=== PATIENT | male | born 1940 | race Caucasian/White ===

== ENCOUNTER 2017-07-06 09:56 | Day surgery (SDC) | payer MEDICARE, OTHER ==
[~2017-07-06] VITALS: Ht 180.3 cm; Wt 75.1 kg
[2017-07-06] MEDS ORDERED: PRINIVIL20 MG PO (11:00)
[2017-07-06] MEDS ORDERED: TOPROL XL 25MG25 MG PO (11:00)
[2017-07-06] MEDS ORDERED: PROAIR HFA0.09 MG/AC IH (11:01)
[2017-07-06] MEDS ORDERED: SPIRIVA RE2.5 MCG/Ac IH (11:02)
[2017-07-06] MEDS ORDERED: RT ADVAIR 228 DISKUS IH (11:02)
[2017-07-06] MEDS ORDERED: HYGROTON 2525 MG/TAB PO (11:03)
[2017-07-06] MEDS ORDERED: ZOCOR 20MG20 MG PO (11:03)
[2017-07-06] MEDS ORDERED: MIRAPEX0.5 MG PO (11:05)
[2017-07-06] MEDS ORDERED: DEPAKOTE 250MG250 MG PO (11:05)
[2017-07-06] MEDS ORDERED: ARICEPT10 MG PO (11:06)
[2017-07-06] MEDS ORDERED: CLARITIN 1010 MG/TAB PO (11:06)
[2017-07-06] MEDS ORDERED: ASPIRIN E.C. 8181 MG PO (11:06)
[2017-07-06] MEDS ORDERED: REMERON30 MG PO (11:07)
[2017-07-06] MEDS ORDERED: D-2000 90 MG-201 TAB PO (11:07)
[2017-07-06] MEDS ORDERED: MASON NATURAL1000 MG PO (11:08)
[2017-07-06] MEDS ORDERED: SINGULAIR 110 MG/TAB PO (11:08)
[2017-07-06] MEDS ORDERED: NAMENDA XR 28MG PO (11:09)
[2017-07-06] MEDS ORDERED: AMBIEN CR 12.12.5 MG PO (11:09)
[2017-07-06] MEDS ORDERED: PRILOSEC 20MG20 MG PO (11:09)
[2017-07-06] MEDS ORDERED: ZYLOPRIM 100MG100 MG PO (11:10)
[2017-07-06] MEDS ORDERED: ACETAMINOPHEN-COD #3 PO (11:10)
[2017-07-06] MEDS ORDERED: NASONEX SPRAY17 GM NS (11:12)
[2017-07-06] MEDS ORDERED: CENTRUM SILVER1 CTB PO (11:12)
[2017-07-06] MEDS ORDERED: MIRALAX PA17 GM/Dose PO (11:12)
[2017-07-06] MEDS ORDERED: TYLENOL 325MG325 MG PO (11:13)
[2017-07-06 11:15] VITALS: BP 147/80; PULSE 64; TEMP 97.9
[2017-07-06 11:40] VITALS: BP 138/80; PULSE 53; TEMP 98
[2017-07-06 11:55] VITALS: BP 140/80; PULSE 54
[2017-07-06 12:10] VITALS: BP 149/85; PULSE 53
[2017-07-06 15:25] VITALS: BP 105/73; PULSE 50
== END 2017-07-06 12:45 | disposition home or self-care (01) ==
LOC: SDCO 09:56
DX: K57.30 Diverticulosis of large intestine without perforation or abscess without bleeding (principal); N18.9 Chronic kidney disease, unspecified; J43.9 Emphysema, unspecified; I10 Essential (primary) hypertension; G47.33 Obstructive sleep apnea (adult) (pediatric); E78.5 Hyperlipidemia, unspecified; G30.9 Alzheimer's disease, unspecified; F02.80 Dementia in other diseases classified elsewhere, unspecified severity, without behavioral disturbance, psychotic disturbance, mood disturbance, and anxiety; Z87.891 Personal history of nicotine dependence
CPT/HCPCS: J2704; J7120

== ENCOUNTER → 2019-04-22 | Outpatient (REF) ==
[~2019-04-22] MED LIST: ACETAMINOPHEN-COD #3 PO; AMBIEN CR 12.12.5 MG PO; ARICEPT10 MG PO; ASPIRIN 32325 MG/TA1 PO; ASPIRIN E.C. 8181 MG PO; ATARAX 25MG25 MG/TAB PO; CENTRUM SILVER1 CTB PO; CLARITIN 1010 MG/TAB PO; COLACE 100100 MG/CAP PO; DEPAKOTE 250MG250 MG PO; DUO-KAPS1 CAP PO; EPA FISH OIL1000 MG PO; FERRO-TIME325 MG PO; HYGROTON 2525 MG/TAB PO; LEADER CLE17 GM/Dose PO; LIPITOR 40MG TA40 MG PO; LOPRESSOR 225 MG/TAB PO; MEGACE ORAL40 MG/ML PO; MIRALAX PA17 GM/Dose PO; MIRAPEX0.5 MG PO; NAMENDA XR 28MG PO; NASONEX SPRAY17 GM NS; NORCO 325 MG-51 TAB PO; NORVASC2.5 MG PO; OSCAL 500 TAB500 MG PO; PRILOSEC 20MG20 MG PO; PRINIVIL20 MG PO; PROAIR HFA0.09 MG/AC IH; REMERON30 MG PO; RT ADVAIR 228 DISKUS IH; RT SPIRIVA18 MCG IH; SINGULAIR 110 MG/TAB PO; SPIRIVA RE2.5 MCG/Ac IH; TOPROL XL 25MG25 MG PO; TYLENOL 325MG325 MG PO; VITAMIN C500 MG PO; VITAMIN D 1001000 IU PO; WELLBUTRIN 75MG75 MG PO; ZANTAC 150MG T150 MG PO; ZOCOR 20MG20 MG PO; ZYLOPRIM 100MG100 MG PO
[2019-04-22 10:05] LABS: HEMOGLOBIN 11.6 g/dl (13.5-18.0); MEAN CELL VOLUME 92 fl (80.0-100.0); MEAN CORPUSCULAR HEMOGLOBIN 30 pg (27.0-31.0); MEAN CORPUSCULAR HGB CONC 33 g/dl (33.0-37.0); MEAN PLATELET VOLUME 11.3 fl (7.4-10.4); PLATELET COUNT 320 K/mm3 (130-400); RED BLOOD COUNT 3.84 M/mm3 (4.20-5.60); REDCELL DISTRIBUTION WIDTH-CV 16.5 % (11.5-14.5)
[2019-04-22 10:06] LABS: HEMATOCRIT 35.4 % (42.0-52.0)
[2019-04-22 10:11] LABS: CALCIUM 9.5 mg/dL (8.4-10.2); CREATININE, serum 1.72 (0.66-1.25); POTASSIUM 4.6 mmol/L (3.4-5.0)
[2019-04-22 10:48] LABS: BAND 6 % (0-10); EOSINOPHIL 5 % (0-4); LYMPHOCYTE 26 % (20.0-51.0); MYELOCYTE 2 % (0-0); NEUTROPHILS 52 % (42.0-75.2); PLATELET ESTIMATE NORMAL (NORMAL)
== END ==
LOC: ZLAB.STJ 09:56
PROVIDERS: Emergency Medicine
DX: Z01.89 Encounter for other specified special examinations (principal)

== ENCOUNTER → 2019-05-16 | Outpatient (REF) ==
[2019-05-16 09:59] LABS: COLLECTION METHOD CLEAN CATCH
[2019-05-16 11:07] LABS: MUCOUS Present /lpf; PH 5 (5-8); SQUAMOUS EPITHELIAL None Seen /hpf; URINE APPEARANCE Clear; URINE BACTERIA None Seen /hpf; URINE BILIRUBIN Negative (NEGATIVE); URINE BLOOD Negative (NEGATIVE); URINE COLOR Yellow; URINE GLUCOSE Negative (NEGATIVE); URINE KETONE Negative (NEGATIVE); URINE LEUKOCYTE ESTERASE Negative (NEGATIVE); URINE NITRATE Negative (NEGATIVE); URINE PROTEIN(semi-quant) Negative (NEGATIVE); URINE RBC 0-2 /hpf; URINE UROBILINOGEN Negative (NEGATIVE)
== END ==
LOC: ZLAB.STJ 09:57
PROVIDERS: Nurse Practitioner Family
DX: N39.0 Urinary tract infection, site not specified (principal)

== ENCOUNTER → 2019-05-18 | Outpatient (CLI) | payer MEDICARE, OTHER ==
[2019-05-18 10:10] LABS: COLLECTION METHOD CLEAN CATCH
[2019-05-18 10:31] LABS: PH 6 (5-8); SQUAMOUS EPITHELIAL None Seen /hpf; URINE APPEARANCE Clear; URINE BACTERIA None Seen /hpf; URINE BILIRUBIN Negative (NEGATIVE); URINE BLOOD Negative (NEGATIVE); URINE COLOR Yellow; URINE GLUCOSE Negative (NEGATIVE); URINE KETONE Negative (NEGATIVE); URINE LEUKOCYTE ESTERASE Negative (NEGATIVE); URINE NITRATE Negative (NEGATIVE); URINE PROTEIN(semi-quant) Negative (NEGATIVE); URINE RBC 0-2 /hpf; URINE UROBILINOGEN Negative (NEGATIVE); URINE WBC 0-2 /hpf
== END ==
LOC: ZLAB.STJ 09:38
PROVIDERS: Nurse Practitioner Family
DX: N39.0 Urinary tract infection, site not specified (principal)

== ENCOUNTER 2019-06-12 16:01 | Emergency (ER) | payer MEDICARE, OTHER ==
[~2019-06-12] VITALS: Ht 177.8 cm; Wt 79.5 kg
[2019-06-12 16:05] VITALS: TEMP 97.1
[2019-06-12] MEDS ORDERED: HCTZ12.5TAB PO (17:56)
[2019-06-12] MEDS ORDERED: SINEMET CR1 UDTAB.S1 PO (17:57)
[2019-06-12 18:08] LABS: BASO # 0.1 (0.0-0.2); BASO % 0.7 % (0.0-2.0); EOS # 0.5 (0.0-0.7); EOS % 6.1 % (0-4.0); GRAN # 5.8 (1.4-6.5); GRAN % 66.7 % (42.2-75.2); LYMPH # 1.4 (1.2-3.4); LYMPH % 15.8 % (20.0-51.0); MEAN CELL VOLUME 93 fl (80.0-100.0); MEAN CORPUSCULAR HEMOGLOBIN 30 pg (27.0-31.0); MEAN CORPUSCULAR HGB CONC 32 g/dl (33.0-37.0); MEAN PLATELET VOLUME 10.9 fl (7.4-10.4); MONO # 0.8 (0.1-0.6); MONO % 9.5 % (1.7-9.3); PLATELET COUNT 188 K/mm3 (130-400); RED BLOOD COUNT 3.96 M/mm3 (4.20-5.60); REDCELL DISTRIBUTION WIDTH-CV 13.6 % (11.5-14.5)
[2019-06-12 18:18] LABS: ALANINE AMINOTRANSFERASE < 6 U/L (21-72); ALBUMIN 3.9 gm/dL (3.5-5.0); ALKALINE PHOSPHATASE 112 U/L (50-136); ANION GAP 14 mmol/L (7-16); AST,SGOT 26 U/L (15-37); BILIRUBIN,TOTAL 0.3 mg/dL (0.0-1.0); BLOOD UREA NITROGEN 29 mg/dL (9-20); CALCIUM 9.6 mg/dL (8.4-10.2); CARBON DIOXIDE 23 mmol/L (22-30); CHLORIDE 105 mmol/L (98-107); CREATININE, serum 1.67 (0.66-1.25); GLUCOSE 90 mg/dL (74-106); POTASSIUM 4.2 mmol/L (3.4-5.0); SODIUM 142 mmol/L (137-145)
[2019-06-12 19:17] VITALS: BP 145/89; PULSE 69
== END 2019-06-12 19:17 | disposition home or self-care (01) ==
LOC: COL.ER 16:01
PROVIDERS: Family Medicine
DX: S70.01XA Contusion of right hip, initial encounter (principal); I10 Essential (primary) hypertension; R40.2412 Glasgow coma scale score 13-15, at arrival to emergency department; W07.XXXA Fall from chair, initial encounter

== ENCOUNTER → 2019-09-22 | Outpatient (CLI) | payer MEDICARE, OTHER ==
[~2019-09-22] MED LIST changes: +HCTZ12.5TAB PO; +SINEMET CR1 UDTAB.S1 PO
[2019-09-22 15:17] LABS: CALCIUM 9.1 mg/dL (8.4-10.2); CREATININE, serum 1.8 (0.66-1.25); POTASSIUM 5.1 mmol/L (3.4-5.0)
== END ==
LOC: ZLAB.STJ 14:14
PROVIDERS: Internal Medicine Nephrology
DX: R79.89 Other specified abnormal findings of blood chemistry (principal)